=== PATIENT | female | born 1980 | race Two or more races ===

== ENCOUNTER 2023-05-19 08:11 | Emergency (ER) | payer OTHER ==
[~2023-05-19] VITALS: Ht 160 cm; Wt 58.1 kg
[~2023-05-19 08:11] MED LIST: NAPRELAN500 M1 PO
[2023-05-19] MEDS ORDERED: KETOROLAC TROMETHAMINE 30 MG VIAL IV STA (08:48)
[2023-05-19] MEDS ORDERED: TRAMADOL HCL 50 MG TABLET PO STA (08:55)
[2023-05-19 09:48] LABS: MEAN CELL VOLUME 70.6 fL (80.00-100.00); MEAN CORPUSCULAR HGB CONC 32.5 g/dl (32.0-36.0); PLATELET COUNT 310 K/uL (150-450); RED BLOOD COUNT 4.25 M/uL (4.00-6.00); RED CELL DISTRIBUTION WIDTH 17.9 % (11.5-14.5)
[2023-05-19 10:13] LABS: PH,URINE 5.5 (5.0-8.0); URINE APPEARANCE Clear; URINE BILIRRUBIN Negative (NEGATIVE); URINE BLOOD Trace; URINE COLOR Yellow; URINE GLUCOSE Negative (NEGATIVE); URINE LEUKOCYTE Negative; URINE NITRATE Negative; URINE PROTEIN Negative (NEGATIVE); URINE UROBILINOGEN 0.2 E.U./dl
[2023-05-19 10:15] LABS: URINE EPITHELIAL CELLS 3.9 uL (0.0-38.8); URINE RBC 3.2 uL (0.0-20.8)
[2023-05-19 10:28] LABS: URINE WBC 0.9 uL (0.0-23.2)
[2023-05-19 10:38] LABS: HEMOGLOBIN 9.8 g/dL (12.0-15.00)
[2023-05-19] MEDS ORDERED: KETOROLAC TROMETHAMINE 30 MG VIAL IM STA (10:56)
[2023-05-19] MEDS ORDERED: TAMSULOSIN HCL 0.4 MG CAP PO STA (11:10)
[2023-05-19 11:12] LABS: CALCIUM 8.8 mg/dL (8.5-10.1); CREATININE SERUM 0.57 mg/dL (0.55-1.02); GFR 115.22; POTASSIUM 3.4 mEq/L (3.5-5.1)
== END 2023-05-19 12:07 | disposition home or self-care (01) ==
LOC: ER 08:11
PROVIDERS: General Practice
DX: N23 Unspecified renal colic (principal); K57.30 Diverticulosis of large intestine without perforation or abscess without bleeding; Z88.8 Allergy status to other drugs, medicaments and biological substances

== ENCOUNTER 2023-10-24 14:16 | Emergency (ER) | payer OTHER ==
[~2023-10-24] VITALS: Ht 160 cm; Wt 57.2 kg
[~2023-10-24 14:16] MED LIST changes: +CARAFATE1 GM PO; +PEPCID AC20 MG PO
[2023-10-24] MEDS ORDERED: LEXAPRO5 MG (15:19)
[2023-10-24] MEDS ORDERED: LIDOCAINE HCL 1% 10ML VIAL ONE (16:53)
[2023-10-24] MEDS ORDERED: CEFTRIAXONE SODIUM 1,000 MG VIAL ONE (16:53)
[2023-10-24] MEDS ORDERED: TETANUS DIPHTHERIA TOX. ADSOR 5 ML VIAL IM ONE (16:54)
[2023-10-24] MEDS ORDERED: TETANUS & DIPHTHERIA TOX,ADULT 0.5 ML VIAL IM ONE (17:00)
[2023-10-24] MEDS ORDERED: LIDOCAINE HCL 1% 10ML VIAL PERCUT ONE (17:00)
[2023-10-24] MEDS ORDERED: CEFTRIAXONE SODIUM 1,000 MG VIAL IM ONE (17:00)
[2023-10-24] MEDS ORDERED: CLEOCIN HCL300 MG PO (17:50)
== END 2023-10-24 18:27 | disposition home or self-care (01) ==
LOC: ER 14:17
DX: S61.412A Laceration without foreign body of left hand, initial encounter (principal); W25.XXXA Contact with sharp glass, initial encounter; Y93.89 Activity, other specified; Y92.89 Other specified places as the place of occurrence of the external cause; Z88.5 Allergy status to narcotic agent